=== PATIENT | female | born 1985 | race African-American/Black ===

== ENCOUNTER 2018-01-05 08:22 | Emergency (ER) | payer OTHER ==
[2018-01-05 08:59] LABS: KETONE, URINE AUTO RFX NEGATIVE (NEGATIVE); LEUKOCYTE ESTERASE UR AUTO RFX NEGATIVE (NEGATIVE); MUCUS, URINE RFX SMALL (NEGATIVE); NITRITE, URINE AUTO RFX NEGATIVE (NEGATIVE); RBC, URINE AUTO RFX 0 /HPF (0-3); SPECIFIC GRAVITY UR AUTO RFX 1.009 (1.002-1.035); SQUAM EPITHELIAL CELL UR AURFX 1 /HPF (0-6); WBC, URINE AUTO RFX 1 /HPF (0-3)
[2018-01-05 10:28] LABS: CHLAMYDIA DNA AMPLIFICATION NEGATIVE (NEGATIVE); GC DNA AMPLIFICATION NEGATIVE (NEGATIVE)
== END 2018-01-05 10:42 | disposition home or self-care (01) ==
LOC: M ED 08:22
DX: O26.891 Other specified pregnancy related conditions, first trimester (principal); N89.8 Other specified noninflammatory disorders of vagina; O36.8910 Maternal care for other specified fetal problems, first trimester, not applicable or unspecified; O34.10 Maternal care for benign tumor of corpus uteri, unspecified trimester; D25.2 Subserosal leiomyoma of uterus; Z87.891 Personal history of nicotine dependence; Z3A.08 8 weeks gestation of pregnancy
CPT/HCPCS: 76801

== ENCOUNTER 2018-08-01 15:44 | Inpatient (IN) | payer OTHER ==
[~2018-08-01] VITALS: Ht 167.6 cm; Wt 118.6 kg
[~2018-08-01 15:44] MED LIST: PRENTAB55 PO
[2018-08-01] MEDS ORDERED: FERR325T3 PO (16:10)
[2018-08-01] MEDS ORDERED: VITA500T PO (16:10)
[2018-08-01 16:22] VITALS: BP 149/85
[2018-08-01 16:49] LABS: HEMOGLOBIN 10.8 g/dl (12.0-15.5); MEAN CORPUSCULAR HGB CONC 33.8 g/dl (32.0-36.5); PLATELET COUNT, AUTOMATED 129 10^3/uL (150-450); RED BLOOD COUNT 3.72 10^6/uL (4.00-5.40); WHITE BLOOD COUNT 7.1 10^3/uL (4.0-10.0)
[2018-08-01 17:14] LABS: ALT/SGPT 17 U/L (12-78); BILIRUBIN,TOTAL 0.3 MG/DL (0.2-1.0); CREATININE FOR GFR 0.74 MG/DL (0.55-1.30); GLOMERULAR FILTRATION RATE > 60.0 (>60); LDH LACTATE DEHYDROGENASE 179 U/L (84-246)
[2018-08-01] MEDS ORDERED: LR 1,000 ML IV SCH (17:19)
--- NOTE | 2018-08-01 17:32 | HPEPDOC ---
Obstetrical History & Physical General Date of Admission Aug 01, 2018 at 15:44 History of Present Illness 32 y/o at 38+5 with newly diagnosed Gest HTN, possible Pre-E with mild features. No MARSHALL/vis changes. No LOF/VB/reg ctx's. Pos FM. Preg c/b sickle cell carrier (FOB is neg) Migraine MARSHALL's, none for a few months Chief Complaint: Induction of labor Care Care: Good Care Dating Final EDC by: LMP, 1st trimester ([place]) Past Medical History Past Obstetrical History : Past Obstetrical History: Multigravida CLAIM INSPECTOR History: Spontaneous (2016) Past Medical History Medical History depression, anxiety, obesity, migraines Surgical History: Kamuela teeth Social History Marital Status: Single Family situation: Spouse/partner home Psychosocial History: No pertinent psych hx (Depr/anxiety well controlled) * Smoker: non-smoker Alcohol: Denies Drugs: denies Abuse Violence Screening Have you been hit/kicked/slapp: No Have you been sexually assault: No Imunizations Tdap status: current Influenza Status: current Allergies Coded Allergies: No Known Drug Allergies (Verified Allergy, Unknown, 08/01/18) Medications Scheduled Ascorbic Acid (Vitamin C) 500 Mg Tab, 1,500 TAB PO DAILY Ferrous Sulfate (Ferrous Sulfate) 325 Mg Tab, 325 MG PO DAILY Multivitamins/ ( 19) 1 Tab Tab, 1 TAB PO DAILY Physical Examination Physical Examination GENERAL: Alert and oriented times three ABDOMEN: Gravid and non-tender to touch. FETUS: fetus is vertex (VTX) by TAUS, Cx FT/50/high/out of the pelvis presenting part not palpable EXTREMITIES: No edema. Laboratory Data 24H LABS Laboratory Tests 2 08/01/18 16:18: Serology Scanned Report Hepatitis B Testing 08/01/18 16:40: Nucleated Red Blood Cells % (auto) 0.0, Glomerular Filtration Rate > 60.0, Creatinine 0.74, Aspartate Amino Transf (AST/SGOT) 20, Alanine Aminotransferase (ALT/SGPT) 17, Lactate Dehydrogenase 179, Total Bilirubin 0.3, Uric Acid 5.0 CBC/BMP Laboratory Tests 08/01/18 16:40 Red Blood Count 3.72 L, Mean Corpuscular Volume 86.0, Mean Corpuscular Hemoglobin 29.0, Mean Corpuscular Hemoglobin Concent 33.8, Red Cell Distribution Width 14.5, Aspartate Amino Transf (AST/SGOT) 20, Alanine Aminotransferase (ALT/SGPT) 17, Lactate Dehydrogenase 179, Total Bilirubin 0.3, Uric Acid 5.0 Urine Culture: No Growth Pertinent Laboratoy Data Blood Type: O+ RBC Antibody Screen: Negative HIV: Negative Hepatitis B: Negative Hepatitis C: Unknown Rapid Plasma Reagin: Nonreactive Rubella: Immune Varicella: Immune Chlamydia/Gonorrhea: Negative Group B Streptococcus: Negative Quad Screen Test: Negative Cystic Fibrosis: Negative Glucose Tolerance Test: 130 Anatomy Ultrasound Placenta Location: Anterior Normal Anatomy: Yes Placenta Previa: No Assessment Variability: Moderate Accelerations: Positive Decelerations: None Tocometer Contractions: Yes Frequency: irregular Assessment/Plan Assessment GHTN, possible mild Pre-E. Unfavorable cx, baby not even in the pelvis. Will start IOL with q 4 hrs 50 mcg Cytotec PO. Plan Admit and orient. School Operations Manager and consent. Diet: reg until active labor or pitocin Group B Streptococcus (GBS) neg Labs and intravenous (IV) per unit protocol. Counseled on Pitocin and induction of labor (IOL). Lactated Ringers (LR): Bolus 1000 mL if edcides on epidural, o/w at 125 mL/hr. Anticipate normal spontaneous delivery () C-S as appropriate. YAQUELIN CHOPRA MD Aug 01, 2018 17:32
[2018-08-01] MEDS: miSOPROStol 50 MCG 1/2 TAB (S0191) PO PRN ×2 (17:33→22:03)
[2018-08-01 17:34] VITALS: BP 139/86
[2018-08-01 18:22] VITALS: BP 145/76
[2018-08-02] VITALS (17 sets, daily range): BP systolic 127–165; BP diastolic 69–95
[2018-08-02] MEDS: miSOPROStol 50 MCG 1/2 TAB (S0191) PO PRN ×2 (01:36→06:00)
[2018-08-02] MEDS ORDERED: OXYTOCIN DRIP 30 UNITS in APPROPRIATE DILUENT 1 EA IV SCH (11:15)
--- NOTE | 2018-08-02 11:25 | NUR ---
S: CNM at bs for reassessment. Cleo is awake and relaxing with FOB at BS. She denies any painful ctx or questions/concerns regarding IOL. She denies MARSHALL, epigastric pain, N/V, or visual changes. O: GEN: A&Ox3 VS: mild range BP's; afebrile ABD: gravid; relaxed uterine resting tone; irritability EXT: no clonus, neg homans; DTR's +3 FHR: 145 mod variability; + accelerations; no decelerations TOCO: q1.5-4, mild intensity via palp; relaxed resting tone SCE: FT external; closed internal os/50%/-4 A/P: Cleo is a 32 y/o at 38+6 weeks adm for IOL d/t GHTN; now ruled in for pre-eclampsia with SPOT urine of 2.07; she does not have severe features. CAT I FHR. No change in cervix with 4 doses of oral misoprostil. Discussed assessment/plan with Dr. Leach (back-up OBGYN) will proceed with oxytocin IOL and/or PLTCS pending patient desire. Reviewed options with patient; she reports that she strongly desires PLTCS at this time. Dr. Leach notified.
[2018-08-02 11:35] LABS: HEMATOCRIT 34.6 % (36.0-47.0); HEMOGLOBIN 11.5 g/dl (12.0-15.5); MEAN CORPUSCULAR HGB CONC 33.2 g/dl (32.0-36.5); MEAN CORPUSCULAR VOLUME 87.4 fl (80.0-96.0); PLATELET COUNT, AUTOMATED 124 10^3/uL (150-450); RED BLOOD COUNT 3.96 10^6/uL (4.00-5.40); WHITE BLOOD COUNT 7.1 10^3/uL (4.0-10.0)
[2018-08-02] MEDS ORDERED: AZITHROMYCIN INJ 500 MG, VIAL MATE ADAPTER 1 EACH in D5W 250 ML IV ONE (12:30)
--- NOTE | 2018-08-02 12:36 | IPNPDOC ---
Text Note Date of Service The patient was seen on 08/02/18. NOTE Called by CNJaimee Gil as Ms. Johnston was requesting a section for delivery. I went to meet the patient and discuss with her. Ms. Johnston is a 32 yo at 38+6 weeks gestation today who was admitted for an IOL yesterday for GHTN. Labwork has ruled her in for pre eclampsia without severe features based on elevated protein:creatinine in her urine. Her cervix was unfavorable on admission yesterday evening and she was ultimately given 4 doses of misoprostol for cervical ripening. MAJ Gil rechecked Ms. Johnston this morning and her cervix was still closed. The plan was to start pitocin. However, Ms. Johnston thought about it, spoke with her , and asked for a section instead. I discussed with Ms Johnston that her induction process would likely be prolonged given her lack of cervical change after numerous doses of misoprostol. If she desired a section instead, it would absolutely be within her rights after appropriate counseling. I discussed with her risks of section to include, but not limited to, bleeding requiring blood transfusion, risk of infection, risk of injury to bowel, bladder, or other structures which could require additional surgery, risk of injury to baby, risk of requiring a hysterectomy as a life saving measure, and even risk of and/or maternal . I also discussed with her that she may require sections for any future deliveries. She verbalized understanding of all these risks and opted to proceed with delivery. Ancef and Azithromycin for infectious prophylaxis. OR and anesthesia notified. All patient questions answered. Wade Leach, VS,Mariana, I+O VS, Mariana, I+O Laboratory Tests 08/01/18 16:40 Red Blood Count 3.72 L, Mean Corpuscular Volume 86.0, Mean Corpuscular Hemoglobin 29.0, Mean Corpuscular Hemoglobin Concent 33.8, Red Cell Distribution Width 14.5, Aspartate Amino Transf (AST/SGOT) 20, Alanine Aminotransferase (ALT/SGPT) 17, Lactate Dehydrogenase 179, Total Bilirubin 0.3, Uric Acid 5.0 08/02/18 11:25 Red Blood Count 3.96 L, Mean Corpuscular Volume 87.4, Mean Corpuscular Hemoglobin 29.0, Mean Corpuscular Hemoglobin Concent 33.2, Red Cell Distribution Width 14.7 H Vital Signs Date Time Temp Pulse Resp B/P (MAP) Pulse Ox O2 Delivery O2 Flow Rate FiO2 08/02/18 11:08 83 142/93 (109) 08/02/18 10:42 97.3 18 WADE LEACH DO Aug 02, 2018 12:35
[2018-08-02] MEDS ORDERED: BICITRA 30ML SOLN UDC PO ONE (13:00)
[2018-08-02] MEDS ORDERED: diphenhydrAMINE INJ 50MG/ML VIAL (J1200) IV PRN (13:05)
[2018-08-02] MEDS ORDERED: NALBUPHINE HCL 10 MG/ML AMP (J2300) IV PRN (13:05)
[2018-08-02] MEDS ORDERED: ONDANSETRON 4MG/2ML VIAL (J2405) IV PRN ×3 (13:05→14:45)
[2018-08-02] MEDS ORDERED: NALOXONE INJ 0.4 MG/1 ML VIAL (J2310) IV PRN ×2 (13:05)
[2018-08-02] MEDS ORDERED: METOCLOPRAMIDE INJ 10MG/2ML VIAL (J2765) IV PRN (13:05)
[2018-08-02] MEDS ORDERED: OXYTOCIN INJ 10 UNITS/ML VIAL (J2590) As Ordered ONE (13:10)
[2018-08-02] MEDS ORDERED: ONDANSETRON 4MG/2ML VIAL (J2405) As Ordered ONE (13:10)
[2018-08-02] MEDS ORDERED: BUPIVACAINE/DEXTROSE 0.75% 2 ML AMP As Ordered ONE (13:10)
[2018-08-02] MEDS ORDERED: ePHEDrine SULFATE 25 MG/5 ML(5MG/ML) SYRINGE As Ordered ONE (13:10)
[2018-08-02] MEDS ORDERED: KETOROLAC 60 MG/2 ML VIAL (J1885) As Ordered ONE (13:10)
[2018-08-02] MEDS ORDERED: MORPHINE PRES-FREE INJ 10 MG/10 ML VIAL (J2274) As Ordered ONE (13:10)
[2018-08-02] MEDS ORDERED: RHOGAM 300 MCG (1500 IU) INJ (J2790) IM SCH (14:30)
[2018-08-02] MEDS ORDERED: PERCOCET 5MG/325MG TAB PO PRN ×2 (14:30→14:45)
[2018-08-02] MEDS ORDERED: MEASLES,MUMPS,RUBELLA VACCINE INJ (MMR-II) (90707) SC SCH (14:30)
[2018-08-02] MEDS ORDERED: LR 1,000 ML IV SCH (14:45)
[2018-08-02] MEDS ORDERED: fentaNYL 100 MCG/2 ML INJECTION (J3010) IV PRN (14:45)
[2018-08-02] MEDS: KETOROLAC 30 MG/ML VIAL (J1885) IV SCH (20:03)
[2018-08-02] MEDS: DOCUSATE SODIUM 100 MG CAP PO PRN (20:03)
[2018-08-02] MEDS: PERCOCET 5MG/325MG TAB PO PRN (20:06)
[2018-08-03 02:00] VITALS: BP 149/90
[2018-08-03] MEDS: KETOROLAC 30 MG/ML VIAL (J1885) IV SCH ×2 (02:17→09:33)
[2018-08-03] MEDS: PERCOCET 5MG/325MG TAB PO PRN ×2 (02:17→16:19)
[2018-08-03 06:00] VITALS: BP 155/89
[2018-08-03 06:57] LABS: HEMATOCRIT 32.4 % (36.0-47.0); HEMOGLOBIN 10.7 g/dl (12.0-15.5); MEAN CORPUSCULAR HEMOGLOBIN 28.6 pg (27.0-33.0); MEAN CORPUSCULAR VOLUME 86.6 fl (80.0-96.0); PLATELET COUNT, AUTOMATED 117 10^3/uL (150-450); RED BLOOD COUNT 3.74 10^6/uL (4.00-5.40); WHITE BLOOD COUNT 8.2 10^3/uL (4.0-10.0)
--- NOTE | 2018-08-03 09:20 | IPNPDOC ---
Progress Note Date of Service: Aug 03, 2018 Progress Note Cleo is a 32 yo G2 now P1 who is POD#1 s/p uncomplicated elective PLTCS per maternal request on 02Aug2018 after being admitted for an IOL for pre eclampsia. Cleo reports feeling well. She has minimal pain. She is ambulating without difficulty. She is tolerating a regular diet and has minimal lochia. She denies any n/v, SOB, chest pain, fevers/chills, or headaches. Vitals - VSS, afebrile, normotensive, non tachycardic General - AAOX3, sitting up in bed , NAD Abdomen - Fundus firm at U-2. No fundal tenderness. Pannus overlying incision. Bandage removed from incision. Incision clean/dry/intact with steri strips in place. No tenderness to palpation. Extremities - Minimal edema, SCDs in place UO - Excellent, >100cc/hr Labs: pre op h/h 11.5/34.5 --> post op h/h 10.7/32.4 Cleo is doing well and is making an appropriate / postoperative recovery. Will remove weaver today, encourage ambulation, and monitor for DTV. Continue regular diet and SCDs until weaver ambulatory. Continue IS use. Continue routine post op care. Anticipate discharge home tomorrow. DO Hany VS, I&O, 24H, Mariana Vital Signs/I&O Vital Signs Date Time Temp Pulse Resp B/P (MAP) Pulse Ox O2 Delivery O2 Flow Rate FiO2 08/03/18 06:00 97.4 79 19 155/89 (111) 08/02/18 18:30 100 I&O- Last 24 Hours up to 6 AM 08/03/18 06:00 Output Total 1050 ml Balance -1050 ml Laboratory Data 24H LABS Laboratory Tests 2 08/02/18 11:25: Nucleated Red Blood Cells % (auto) 0.4H 08/03/18 06:31: Nucleated Red Blood Cells % (auto) 0.0 CBC/BMP Laboratory Tests 08/02/18 11:25 Red Blood Count 3.96 L, Mean Corpuscular Volume 87.4, Mean Corpuscular Hemoglobin 29.0, Mean Corpuscular Hemoglobin Concent 33.2, Red Cell Distribution Width 14.7 H 08/03/18 06:31 Red Blood Count 3.74 L, Mean Corpuscular Volume 86.6, Mean Corpuscular Hemoglob in 28.6, Mean Corpuscular Hemoglobin Concent 33.0, Red Cell Distribution Width 14.6 H WADE CALHOUN DO Aug 03, 2018 09:20
[2018-08-03] MEDS: PRENATAL VITAMINS CHEWABLE TABLET PO SCH (09:33)
--- NOTE | 2018-08-03 10:14 | RO ---
DATE OF PROCEDURE: 08/02/2018 PREPROCEDURE DIAGNOSIS: Maternal request for section, remote from vaginal delivery. POSTPROCEDURE DIAGNOSIS: Maternal request for section, remote from vaginal delivery. PROCEDURE: Primary low transverse section. SURGEON: Dr. Tom Leach CLEAR COAT SPRAYER: Dr. Alvarado who was essential with retraction, tissue exposure and delivery of the infant. ANESTHESIA: Spinal. FLUIDS: 700 mL lactated Ringer's. URINE OUTPUT: 50 mL. ESTIMATED BLOOD LOSS: 500 mL. COMPLICATIONS: None. ANTIBIOTICS: 2 grams Ancef. 500 mg of azithromycin. DETAILED PROCEDURE DESCRIPTION: The patient was undergoing an induction of labor for preeclampsia. Ms. Johnston was a 32-year-old G2, P0 at 38 and 3 weeks. Her induction was started with cytotec. She was given 4 doses because of her unfavorable cervix and no cervical change was made. The patient at that time requested a section as she understood it would be a prolonged induction of labor, and she declined any further induction methods. I went and counseled the patient myself. The risks, benefits, indications and alternatives of the procedure were reviewed with the patient and informed consent was obtained. The patient was taken to the operating room where spinal anesthesia was obtained without difficulty. She was then prepped and draped in the usual sterile fashion in dorsal supine position. A surgical time-out was then performed in which the patient's identify and planned procedure were verified with the operative team. A Hahn catheter had previously been inserted to drain the bladder. A Pfannenstiel skin incision was then made with a scalpel and carried through to the underlying layer of fascia using the Bovie electrocautery. The fascia was incised in the midline and the incision was extended laterally with Stephenson scissors. The Superior aspect of the fascial incision was grasped with Lalito clamps, elevated and the underlying rectus muscles were dissected off with Stephenson scissors. Attention was then turned to the inferior aspect of this incision which in a similar fashion was grasped, tented up with Lalito clamps and the rectus muscles were dissected off with Stephenson scissors. The rectus muscles were then at the midline. The peritoneum was identified and entered digitally. The peritoneal incision was then extended horizontally and superiorly with good visualization of the bladder. A Mobius self-containing retractor was then inserted into the abdomen which provided excellent exposure of the operative field. The vesicouterine peritoneum was then identified and entered sharply with Metzenbaum scissors. This incision was then extended laterally and a bladder flap was created digitally. Next, the lower uterine segment was incised in a transverse fashion with the scalpel. The uterine incision was then extended manually. The amniotic sac was artificially ruptured and it was productive of clear fluid. The was found in cephalic direct occiput posterior (OP) presentation. The 's head was then delivered atraumatically through the hysterotomy site followed easily by the remainder of the body. Infants nose and mouth were suctioned with a bulb syringe and the cord was doubly clamped and cut. The was then handed off to the awaiting pediatricians. The Placenta was then removed manually. The uterus was left in situ and closed in that way. Before closure of the hysterotomy, the uterus was cleared of all clots and debris. The uterine incision was then repaired with #0-Monocryl suture in a running locked fashion. Second layer of #0-Monocryl was then used to imbricate the hysterotomy in a vertical fashion. Inspection revealed excellent hemostasis. The pericolic gutters were then inspected and cleared of all clots and debris and irrigation was performed to good effect. Again, inspection of the hysterotomy revealed excellent hemostasis. The Mobius self-containing retractor was then removed from the abdomen. The peritoneum was then closed with #3-0 Vicryl suture in a running fashion. The fascia was then closed with #0 Vicryl suture in a running fashion. The Subcutaneous fat was closed with #3-0 Vicryl suture in a continuous fashion. The Skin was then closed with #4-0 Monocryl suture in a subcuticular fashion. The incision was then dressed with Steri-Strips and a pressure dressing was applied. At the completion of the case, a bimanual exam was performed with good uterine tone and minimal vaginal bleeding. The patient tolerated the procedure well. Sponge, instrument and needle counts were correct times three. The patient was taken to the recovery room in stable condition. CHAPARRO
[2018-08-03 10:27] VITALS: BP 129/82
[2018-08-03 14:45] VITALS: BP 139/84
[2018-08-03] MEDS: IBUPROFEN 800 MG TAB PO SCH (16:18)
[2018-08-03 18:00] VITALS: BP 141/70
[2018-08-03] MEDS: DOCUSATE SODIUM 100 MG CAP PO PRN (21:24)
[2018-08-03 22:00] VITALS: BP 141/78
[2018-08-04] MEDS: PERCOCET 5MG/325MG TAB PO PRN ×2 (00:10→06:24)
[2018-08-04] MEDS: IBUPROFEN 800 MG TAB PO SCH ×2 (00:10→07:44)
[2018-08-04 02:00] VITALS: BP 124/62
[2018-08-04 06:00] VITALS: BP 138/75
[2018-08-04] MEDS: PRENATAL VITAMINS CHEWABLE TABLET PO SCH (07:44)
--- NOTE | 2018-08-04 07:51 | DS.PDOC ---
Discharge Summary General Date of Admission Aug 01, 2018 at 15:44 Date of Discharge Aug 04, 2018 Discharge Summary HOSPITAL COURSE: Ms. Johnston is a 32 yo G2 now P1 who underwent an uncomplicated PLTCS on 02Aug2018 per maternal request after being admitted for an IOL for GHTN, and then ultimately the development of pre eclampsia. Her induction process was protracted, and she declined proceeding any further and requested a section for delivery. Her /postoperative course has been unremarkable. BPs normalized and she she had no signs/symptoms of pre eclampsia. On her day of discharge she met all appropriate discharge criteria. She was ambulating, voiding, tolerating a regular diet, passing gas, had minimal lochia, and her pain was well controlled with PO pain medications. had bilirubinemia and required phototherapy. DISCHARGE MEDICATIONS: Please see below. ALLERGIES: Please see below. PHYSICAL EXAMINATION ON DISCHARGE: VITAL SIGNS: Please see below. GENERAL: AAOX3, sitting up in bed, NAD ABDOMINAL EXAMINATION: Fundus firm at U-2. No fundal tenderness. Incision well appearing, clean/dry/intact. Steri strips in place. No tenderness to palpation EXTREMITIES: Mild lower extremity edema PSYCHIATRIC EXAMINATION: Affect appropriate LABORATORY DATA: Please see below. ACTIVITY: Pelvic rest for 6 weeks. No lifting >10 pounds for 6 weeks. DIET: Regular DISCHARGE PLAN: discharge to boarder status on 04Aug2018 DISPOSITION: Discharge to boarder. DISCHARGE INSTRUCTIONS: Postoperatively, you should expect significant abdominal soreness. We will provide oral pain medications, typically an anti-inflammatory (motrin) and an oral narcotic (percocet) that you can diamond picker at the [place] pharmacy. It is recommended to take the anti-inflammatory medication three times daily, using the narcotic medication as needed in addition. Sometimes, narcotic medications can cause constipation, and we recommend using a stool softener (Miralax), drinking plenty of water, increasing the fiber in your diet, and drinking prune juice if constipation becomes a significant issue. Dressings: Your abdominal incision is closed with absorbable stitches and dressed with steri-strips. Remove the steri-strips in one week. You may shower on the day following surgery. It is normal to have some pain at the incisions that is sharp. Signs of infection at the incision include pain, redness, swelling and drainage of pus from the incision. Precautions: Please contact the [facility] during business hours, the [facility] provider photogrammetric compilation specialist after hours, or report to the Emergency Room after hours for any of the following symptoms: * Fever (temperature > 101F) * Significant pain not controlled with oral pain medications * Significant nausea and vomiting with inability to tolerate any food or medication * Significant redness of the incisions or drainage from the incisions Return to normal: You should be able to resume normal activities and exercise within 6 weeks. You may notice more soreness with abdominal exercises, and this is to be expected. Avoid heavy lifting greater than 10 pounds until 6 weeks after surgery. Nothing in the vagina (no tampons, intercourse, or douching) for 6-8wks. You may resume sexual activity 6-8 weeks after surgery when cleared by your surgeon. ITEMS TO FOLLOWUP ON ON OUTPATIENT: 1. Incision check in 2 weeks 2. appointment in 6-8 weeks. DISCHARGE CONDITION: Stable. TIME SPENT ON DISCHARGE: Greater than 20 minutes. Wade Leach DO Vital Signs/I&Os Vital Signs Date Time Temp Pulse Resp B/P (MAP) Pulse Ox O2 Delivery O2 Flow Rate FiO2 08/04/18 06:24 18 08/04/18 06:00 97.7 85 138/75 (96) 08/03/18 22:00 98 I&O- Last 24 Hours up to 6 AM 08/04/18 06:00 Output Total 3500 ml Balance -3500 ml Discharge Medications Scheduled Ascorbic Acid (Vitamin C) 500 Mg Tab, 1,500 TAB PO DAILY, (Reported) Ferrous Sulfate (Ferrous Sulfate) 325 Mg Tab, 325 MG PO DAILY, (Reported) Multivitamins/ ( 19) 1 Tab Tab, 1 TAB PO DAILY, (Reported) Allergies Coded Allergies: No Known Drug Allergies (Verified Allergy, Unknown, 08/01/18) WADE LEACH DO Aug 04, 2018 07:51
[2018-08-04 10:00] VITALS: BP 140/81
[2018-08-04] MEDS ORDERED: COLA100C5 PO (10:03)
[2018-08-04] MEDS ORDERED: OXYC1TAB23 PO ×2 (10:03)
[2018-08-04] MEDS ORDERED: IBUP-1114 PO (10:03)
== END 2018-08-04 13:30 | disposition home or self-care (01) | DRG 773 ==
LOC: M LDI 15:44 → M OBS 08-02 18:41
PROVIDERS: ADMIT Obstetrics & Gynecology; ATTEND Obstetrics & Gynecology
PROC: 3E0DXGC Introduction of Other Therapeutic Substance into Mouth and Pharynx, External Approach (ICD-10-PCS; 2018-08-01)
PROC: 10D00Z1 Extraction of Products of Conception, Low, Open Approach (ICD-10-PCS; principal; 2018-08-02 12:57)
DX: O14.04 Mild to moderate pre-eclampsia, complicating childbirth (principal); Z37.0 Single live birth; Z3A.38 38 weeks gestation of pregnancy; D57.3 Sickle-cell trait; O99.02 Anemia complicating childbirth